=== PATIENT | female | born 1935 | race Caucasian/White ===

== ENCOUNTER 2017-03-15 22:32 | Inpatient (IN) | payer OTHER, BC ==
[~2017-03-15] VITALS: Ht 157.5 cm; Wt 66.6 kg
[~2017-03-15 22:32] MED LIST: ASPIR 8181 M1 PO; GARLIC1000 MG PO; MIRALAX255 GM PO; MULTIVITAMIN W1 EACH PO; OMEGA 3 500 SO1 EACH PO; PROBIOTIC1 EAC3 PO; TURMERIC500 MG PO; VITAMIN D31000 UNI2 PO
[2017-03-16] MEDS ORDERED: KEFLEX500 MG PO (10:08)
[2017-03-16 10:09] VITALS: BP 158/70
[2017-03-16 19:21] LABS: HEMATOCRIT 43.6 % (36.0-46.0); HEMOGLOBIN 14.2 G/DL (11.9-15.5); MCH 30.1 PG (29.0-34.0); MCHC 32.6 G/DL (30.0-36.0); MCV 92.6 FL (83-99); PLATELET COUNT 430 K/uL (156-360); RBC DIS.WIDTH-CV 13.2 % (11.8-14.6); RBC DIS.WIDTH-SD 45.1 % (39-53); RED BLOOD COUNT 4.71 M/uL (3.80-5.20); WHITE BLOOD COUNT 12.1 K/uL (4.1-10.2)
[2017-03-16 19:31] LABS: CHLORIDE 107 MEQ/L (99-109); POTASSIUM 3.8 MEQ/L (3.7-5.4); SODIUM 140 MEQ/L (136-147)
[2017-03-16 19:37] LABS: CREATININE 0.8 MG/DL (0.6-1.3); GFR ESTIMATE (CALCULATED) > 59 mL/min/; GLUCOSE 145 mg/dL (70-99); UREA NITROGEN (BUN) 13 mg/dL (9-23)
[2017-03-16 20:06] VITALS: BP 108/52
[2017-03-17 00:20] VITALS: BP 100/51
[2017-03-17 04:40] VITALS: BP 100/58
[2017-03-17 07:15] LABS: CHLORIDE 104 MEQ/L (99-109); CREATININE 0.9 MG/DL (0.6-1.3); GFR ESTIMATE (CALCULATED) > 59 mL/min/; GLUCOSE 182 mg/dL (70-99); SODIUM 137 MEQ/L (136-147); UREA NITROGEN (BUN) 12 mg/dL (9-23)
[2017-03-17 07:30] LABS: MCHC 32.1 G/DL (30.0-36.0); MCV 93.4 FL (83-99); PLATELET COUNT 417 K/uL (156-360); RBC DIS.WIDTH-CV 13.3 % (11.8-14.6); RBC DIS.WIDTH-SD 45.5 % (39-53); RED BLOOD COUNT 4.07 M/uL (3.80-5.20); WHITE BLOOD COUNT 13.4 K/uL (4.1-10.2)
[2017-03-17 07:31] LABS: HEMOGLOBIN 12.2 G/DL (11.9-15.5)
[2017-03-17 08:26] VITALS: BP 109/52
[2017-03-17 11:25] VITALS: BP 108/54
[2017-03-17 15:13] VITALS: BP 103/50
[2017-03-17 19:50] VITALS: BP 119/52
[2017-03-18 00:08] VITALS: BP 117/55
[2017-03-18 04:39] VITALS: BP 115/56
[2017-03-18 06:52] LABS: HEMATOCRIT 39.4 % (36.0-46.0); HEMOGLOBIN 12.8 G/DL (11.9-15.5); MCH 30.5 PG (29.0-34.0); MCHC 32.5 G/DL (30.0-36.0); PLATELET COUNT 394 K/uL (156-360); RBC DIS.WIDTH-CV 13.5 % (11.8-14.6); RBC DIS.WIDTH-SD 46.3 % (39-53); RED BLOOD COUNT 4.19 M/uL (3.80-5.20); WHITE BLOOD COUNT 9.5 K/uL (4.1-10.2)
[2017-03-18 07:02] LABS: CHLORIDE 107 MEQ/L (99-109); GFR ESTIMATE (CALCULATED) 56 mL/min/; POTASSIUM 4.3 MEQ/L (3.7-5.4); SODIUM 141 MEQ/L (136-147); UREA NITROGEN (BUN) 12 mg/dL (9-23)
[2017-03-18 07:06] LABS: GLUCOSE 93 mg/dL (70-99)
[2017-03-18 07:10] VITALS: BP 125/60
[2017-03-18] MEDS ORDERED: TRAMADOL HCL50 MG PO (10:51)
[2017-03-18] MEDS ORDERED: BACTRIM,SEPT1 TABLET PO (10:51)
== END 2017-03-18 12:36 | disposition home or self-care (01) | DRG 746 ==
LOC: ENRESERV 22:32 → 2SOUTH 03-16 08:03 → ENRESERV 03-16 15:51 → 2EASTP 03-16 18:07
PROVIDERS: Obstetrics & Gynecology Gynecologic Oncology
PROC: 0USG0ZZ Reposition Vagina, Open Approach (ICD-10-PCS; principal; 2017-03-16)
PROC: 0T9B00Z Drainage of Bladder with Drainage Device, Open Approach (ICD-10-PCS; principal; 2017-03-16)
PROC: 0JQC0ZZ Repair Pelvic Region Subcutaneous Tissue and Fascia, Open Approach (ICD-10-PCS; principal; 2017-03-16)
DX: N81.3 Complete uterovaginal prolapse (principal); K86.1 Other chronic pancreatitis; N80.0 Endometriosis of uterus; E55.9 Vitamin D deficiency, unspecified; K40.90 Unilateral inguinal hernia, without obstruction or gangrene, not specified as recurrent; E78.5 Hyperlipidemia, unspecified; K21.9 Gastro-esophageal reflux disease without esophagitis; N30.20 Other chronic cystitis without hematuria; Z90.710 Acquired absence of both cervix and uterus; Z82.49 Family history of ischemic heart disease and other diseases of the circulatory system; Z96.653 Presence of artificial knee joint, bilateral; Z87.891 Personal history of nicotine dependence; Z80.0 Family history of malignant neoplasm of digestive organs; Z79.82 Long term (current) use of aspirin
CPT/HCPCS: 80048; 85027; 86850; 86900; 86901; 86920; 94799; C1781; J0131; J0690; J1100; J1170; J1650; J1885; J2405; J2765; J3010; J7120; S0028